=== PATIENT | female | born 1940 | race Caucasian/White ===

== ENCOUNTER → 2016-09-28 | Outpatient (REF) ==
[2016-09-28 09:37] LABS: INR 1.1 (0.8-3.0); PROTHROMBIN TIME 12.3 SECONDS (9.7-12.8)
== END ==
LOC: ZMSC 09:25
PROVIDERS: Orthopaedic Surgery
DX: Z01.89 Encounter for other specified special examinations (principal)

== ENCOUNTER → 2016-09-30 | Outpatient (REF) ==
[2016-09-30 05:15] LABS: INR 1.7 (0.8-3.0); PROTHROMBIN TIME 18.8 SECONDS (9.7-12.8)
== END ==
LOC: ZMSC 05:04
PROVIDERS: Orthopaedic Surgery
DX: Z01.89 Encounter for other specified special examinations (principal)

== ENCOUNTER → 2017-03-13 | Outpatient (REF) ==
[2017-03-13 15:01] LABS: SYNOVIAL FL. MONONUCLEAR 87.5 % (0-75); SYNOVIAL FLUID RBC 10000 /mm3 (0-0); SYNOVIAL FLUID WBC 570 /mm3 (200-600)
[2017-03-13 19:19] LABS: SYNOVIAL FLUID APPEARANCE HAZY; SYNOVIAL FLUID COLOR AMBER
== END ==
LOC: ZMSC 14:40
PROVIDERS: Orthopaedic Surgery
DX: Z01.89 Encounter for other specified special examinations (principal)

== ENCOUNTER → 2017-09-29 | Outpatient (CLI) | payer MEDICARE, BC | LOC: COL.RAD 09:01 | DX: M25.561 Pain in right knee (principal); Z96.651 Presence of right artificial knee joint | CPT/HCPCS: A9503 ==

== ENCOUNTER → 2017-10-27 | Outpatient (REF) ==
[~2017-10-27] MED LIST: ALLEGRA 180MG180 MG PO; ASPIRIN 32325 MG/TAB PO; CALCIUM 600MG+D1 TAB PO; FLONASE NASAL S16 GM NS; HCTZ 25MG TAB25 MG PO; K-DUR 10 MEQ T10 MEQ PO; LASIX 40MG TABL40 MG PO; LIPITOR 40MG TA40 MG PO; LOTENSIN40 MG PO; NAPROSYN500 MG PO; ROXICODONE 55 MG/TAB PO; TYLENOL 500MG500 MG PO
== END ==
LOC: ZMSC 07:58
DX: Z11.1 Encounter for screening for respiratory tuberculosis (principal)

== ENCOUNTER → 2017-10-28 | Outpatient (REF) | payer MEDICARE, BC ==
[2017-10-28 10:45] LABS: CREATININE, serum 0.68 mg/dL (0.52-1.25); POTASSIUM 4.4 mmol/L (3.4-5.0)
[2017-10-28 10:56] LABS: VANCOMYCIN PEAK 19.46 ug/mL
== END ==
LOC: ZMSC 10:11 → EDSTATUS 13:43
PROVIDERS: Physician Assistant
DX: Z01.89 Encounter for other specified special examinations (principal)

== ENCOUNTER → 2017-10-29 | Outpatient (CLI) | payer MEDICARE, BC | LOC: COL.LAB 12:40 | DX: Z01.89 Encounter for other specified special examinations (principal); Z53.8 Procedure and treatment not carried out for other reasons ==

== ENCOUNTER → 2017-10-29 | Outpatient (REF) | LOC: ZMSC 15:09 | DX: Z01.89 Encounter for other specified special examinations (principal) ==

== ENCOUNTER 2017-10-30 11:13 | Outpatient (RCR) | payer MEDICARE, BC ==
[~2017-10-30] VITALS: Ht 162.6 cm; Wt 84.0 kg
[2017-10-30 11:51] VITALS: BP 138/68; PULSE 76; TEMP 98.1
[2017-10-30] MEDS ORDERED: NAPROSYN500 MG PO (12:00)
[2017-10-30] MEDS ORDERED: ROXICODONE 55 MG/TAB PO (12:00)
[2017-10-30] MEDS ORDERED: LOTENSIN40 MG PO (12:03)
[2017-10-30] MEDS ORDERED: K-DUR 10 MEQ T10 MEQ PO (12:03)
[2017-10-30] MEDS ORDERED: HCTZ 25MG TAB25 MG PO (12:04)
[2017-10-30] MEDS ORDERED: LIPITOR 40MG TA40 MG PO (12:04)
[2017-10-30] MEDS ORDERED: ALLEGRA 180MG180 MG PO (12:04)
[2017-10-30] MEDS ORDERED: LASIX 40MG TABL40 MG PO (12:05)
[2017-10-30] MEDS ORDERED: ASPIRIN 32325 MG/TAB PO (12:05)
[2017-10-30] MEDS ORDERED: CALCIUM 600MG+D1 TAB PO (12:05)
[2017-10-30] MEDS ORDERED: FLONASE NASAL S16 GM NS (12:05)
[2017-10-30] MEDS ORDERED: TYLENOL 500MG500 MG PO (12:06)
== END 2017-10-30 13:46 | disposition home or self-care (01) ==
LOC: EUO 11:13
DX: Z45.2 Encounter for adjustment and management of vascular access device (principal); Z96.651 Presence of right artificial knee joint
CPT/HCPCS: C1751

== ENCOUNTER → 2018-02-15 | Outpatient (CLI) | payer MEDICARE, BC | LOC: COL.LAB 15:53 | DX: Z01.812 Encounter for preprocedural laboratory examination (principal) ==

== ENCOUNTER → 2018-02-28 | Outpatient (CLI) | payer MEDICARE, BC | LOC: ZCOL.LAB 22:08 | DX: Z01.89 Encounter for other specified special examinations (principal) ==

== ENCOUNTER → 2018-03-01 | Outpatient (REF) | LOC: ZMSC 06:40 | DX: Z01.89 Encounter for other specified special examinations (principal) ==